=== PATIENT | male | born 1995 | race Two or more races ===

== ENCOUNTER 2024-07-12 01:57 | Emergency (ER) | payer OTHER ==
[~2024-07-12] VITALS: Ht 170.2 cm; Wt 100.0 kg
[2024-07-12 02:06] VITALS: BP 145/94; PULSE 70; RESP 16; TEMP 98; O2SAT 96
== END 2024-07-12 02:18 | disposition left against medical advice (07) ==
LOC: ER 01:57
DX: R11.2 Nausea with vomiting, unspecified (principal); Z53.21 Procedure and treatment not carried out due to patient leaving prior to being seen by health care provider